=== PATIENT | female | born 1960 | race Caucasian/White ===

== ENCOUNTER 2018-10-12 12:03 | Emergency (ER) | payer BC ==
[2018-10-12] MEDS ORDERED: HYDROmorphone 2 MG/ML SDV IM ONE (12:20)
--- NOTE | 2018-10-12 12:20 | EDM.PDOC ---
ED HPI GENERAL MEDICAL PROBLEM - General Stated Complaint: BACK PAIN, FAINTED AND SWEATING Time Seen by Provider: 10/12/18 12:05 Source of Information: Reports: Patient - History of Present Illness INITIAL COMMENTS - FREE TEXT/NARRATIVE: pt was shaveling the snow yeasterdy, and after she was done she started since then feeling sammy localized low back pain , non-radiating , worsenied with everymovement, to the point she is not able to get out of her bed this mornins , pt was wheeled in to ER, denies fall or trauma, denies neuro Sx or any other associated sx or concerns, report Hx of chronic low back problems for severl years for which she has not been needing to take or use any medication for. - Related Data Allergies Allergy/AdvReac Type Severity Reaction Status Date / Time No Known Allergies Allergy Verified 10/12/18 12:09 Home Meds: Home Meds Lidocaine 5% [Lidoderm 5%] 1 patch TOP DAILY 04/12/16 [History] Lisdexamfetamine [Vyvanse] 30 mg PO DAILY 04/12/16 [History] Lisdexamfetamine [Vyvanse] 50 mg PO DAILY 04/12/16 [History] Pregabalin [Lyrica] 50 mg PO TID 04/12/16 [History] Zolpidem [Ambien] 10 mg PO BEDTIME 04/12/16 [History] Past Medical History HEENT History: Reports: Impaired Vision Cardiovascular History: Reports: None Respiratory History: Reports: None Gastrointestinal History: Reports: None Genitourinary History: Reports: Urinary Incontinence BOOM BOSS History: Reports: Fibroids, Other BOOM BOSS History: II PARA II Musculoskeletal History: Reports: Arthritis, Osteoarthritis Neurological History: Reports: Neuropathy, Peripheral, Other (See Below) Other Neuro History: SLEEP DISTURBANCE Psychiatric History: Reports: Anxiety, Depression Endocrine/Metabolic History: Reports: Obesity/BMI 30+ Hematologic History: Reports: None, Other (See Below) Other Hematologic History: RIGHT VEIN LIGATION STRIPPING Immunologic History: Reports: None Oncologic (Cancer) History: Reports: None Dermatologic History: Reports: Other (See Below) Other Dermatologic History: ROSECIA - Infectious Disease History Infectious Disease History: Reports: Chicken Pox - Past Surgical History GI Surgical History: Reports: Hernia Repair/Other Musculoskeletal Surgical History: Reports: Knee Replacement Social & Family History - Family History Other Family History: SEE HX ED ROS GENERAL - Review of Systems Review Of Systems: See Below Constitutional: Reports: No Symptoms Respiratory: Reports: No Symptoms. Denies: Shortness of Breath, Wheezing Cardiovascular: Reports: No Symptoms. Denies: Chest Pain Endocrine: Reports: No Symptoms GI/Abdominal: Reports: No Symptoms : Reports: No Symptoms Musculoskeletal: Reports: Back Pain, Muscle Pain Skin: Reports: No Symptoms Neurological: Reports: No Symptoms ED EXAM, GENERAL - Physical Exam Exam: See Below Exam Limited By: Altered Mental Status General Appearance: Alert, Moderate Distress Nose: Normal Inspection Throat/Mouth: Normal Inspection, Normal Oropharynx Head: Atraumatic, Normocephalic Neck: Normal Inspection, Supple, Non-Tender, Full Range of Motion Respiratory/Chest: No Respiratory Distress Cardiovascular: Normal Peripheral Pulses, Regular Rate, Rhythm, No Edema GI/Abdominal: Normal Bowel Sounds, Soft (Female) Exam: Normal External Exam Rectal (Female) Exam: Normal Exam Back Exam: Normal Inspection, Full Range of Motion Extremities: Normal Inspection, Other (no tendernss over the spine , pt tender all across lower back muscular areas. ) Psychiatric: Normal Affect Skin Exam: Warm Course - Vital Signs Text/Narrative:: pt has lumbar strain , she seems quit uncomfortable, she was given Dilaudid 2 mg IM here and rx on valium to use with motrin OTC , pt to follow with PCP if needed. Departure - Departure Time of Disposition: 12:20 Disposition: Home, Self-Care 01 Clinical Impression: Low back pain - Discharge Information Referrals: Laura Stone NP [Primary Care Provider] -
[2018-10-12] MEDS ORDERED: diazePAM 5 MG/ML MDV IM ONE (13:35)
[2018-10-12] MEDS ORDERED: Diazepam 10 MG Tab PO PRN (14:21)
[2018-10-12] MEDS ORDERED: Diazepam 5 MG Tab ONE (14:21)
[2018-10-12] MEDS ORDERED: Ondansetron 8 MG Tab.DIS PO ONE ×2 (14:26→14:28)
[2018-10-12 17:40] VITALS: BP 138/81
== END 2018-10-12 14:44 | disposition home or self-care (01) ==
LOC: FB.ED 12:03
DX: M54.5 Low back pain (principal); E66.9 Obesity, unspecified; Z79.899 Other long term (current) drug therapy
CPT/HCPCS: 96372; 99283; A9270; J1170